=== PATIENT | male | born 1970 | race Caucasian/White ===

== ENCOUNTER → 2017-02-01 | Outpatient (CLI) | payer BC | LOC: GNUT 12:59 | DX: E11.9 Type 2 diabetes mellitus without complications (principal); Z71.3 Dietary counseling and surveillance ==

== ENCOUNTER → 2017-03-05 | Outpatient (CLI) | payer BC | END | disposition disaster alternative care site (69) | LOC: GNUT 12:54 | DX: E11.9 Type 2 diabetes mellitus without complications (principal) | CPT/HCPCS: G0270 ==